=== PATIENT | male | born 1970 | race Caucasian/White ===

== ENCOUNTER → 2017-12-10 | Outpatient (CLI) | payer OTHER, BC ==
[~2017-12-10] MED LIST: DEX4 PO; DIA5 PO; DOXY-179 PO; HYDR-385 PO; HYDR2TAB74 PO; METH-280 PO; METH4TAB66 PO; OXYC-854 PO; PRED-1 PO; SILD100T59 PO
--- NOTE | 2017-12-10 11:39 | RADIOLOGY IMAGING REPORT ---
FACILITY: [facility] PATIENT NAME: Berry Pineda : 1970 MR: [id number] V: [id number] EXAM DATE: ORDERING PHYSICIAN: NEL MARKHAM TECHNOLOGIST: [place] [facility] [place] Pineda : 1970 Visit/Account:[id number] Date of Sevice: 12/10/2017 EXAMINATION: L SPINE W/O CONTRAST INDICATION: Back injury COMPARISON: December 08, 2015 TECHNIQUE: Multiplane MR imaging was performed through the lumbar spine without contrast. FINDINGS: Vertebral bodies: Normal Conus position/signal: Normal Marrow signal: Minimal degenerative edema surrounds the L4-5 and L5-S1 disc spaces, new at L4-5. Extraspinal structures including psoas muscles/paraspinal soft tissues: Normal L1-2: Normal L2-3: Unchanged prominence of posterior epidural space fat, otherwise normal. L3-4: Unchanged posterior disc annular fissure, small unchanged posterior disc protrusion, slightly i ncreased prominence of posterior epidural space fat, mild right lateral recess narrowing has increase d. Mild thecal sac narrowing has increased. Mild new left foraminal narrowing, otherwise normal. L4-5: Moderate to severe unchanged degenerative disc disease, small posterior disc protrusion has sli ghtly increased in size, unchanged mild bilateral lateral recess narrowing, moderate unchanged right foraminal narrowing, mild to moderate unchanged left foraminal narrowing. L5-S1: Left posterior disc protrusion is stable to slightly decreased in size. This measures 5 mm AP dimension. This partially effaces the left lateral recess as before. Minimal unchanged left foraminal narrowing. IMPRESSION: 1. 5 mm AP dimension left posterior L5-S1 disc protrusion is stable to slightly decreased in size. Th is results in unchanged left lateral recess narrowing. 2. Moderate to severe unchanged L4-5 degenerative disc disease. 3. Mild right L3-4 lateral recess narrowing and mild L3-4 thecal sac narrowing have increased. 4. Multilevel foraminal narrowing, see level by level comments above. Report Dictated By: Basil Samson MD at 12/10/2017 11:25 AM Report E-Signed By: Basil Samson MD at 12/10/2017 11:34 AM WSN:[id number]
== END ==
LOC: MRI 09:10
PROVIDERS: ATTEND Neurological Surgery
DX: M51.26 Other intervertebral disc displacement, lumbar region (principal); M51.27 Other intervertebral disc displacement, lumbosacral region; M51.36 Other intervertebral disc degeneration, lumbar region
CPT/HCPCS: 72148